=== PATIENT | male | born 1985 | race Caucasian/White ===

== ENCOUNTER 2016-11-30 18:26 | Emergency (ER) | payer SELFPAY ==
[~2016-11-30] VITALS: Ht 182.9 cm; Wt 90.0 kg
[~2016-11-30 18:26] MED LIST: ULTRAM50 M1 PO
[2016-11-30] MEDS ORDERED: CIPROFLOXACN500 MG PO (19:02)
[2016-11-30] MEDS ORDERED: PERCOCET 5/325M1 TAB PO (19:02)
[2016-11-30] MEDS ORDERED: BACTRIM DS1 TAB PO (19:02)
[2016-11-30 19:19] VITALS: BP 145/65
== END 2016-11-30 19:30 | disposition home or self-care (01) | DRG 603 ==
LOC: ED 18:26
DX: L02.416 Cutaneous abscess of left lower limb (principal)